=== PATIENT | female | born 1985 | race Caucasian/White ===

== ENCOUNTER → 2021-03-09 | Day surgery (SDC) | payer OTHER ==
[~2021-03-09] MED LIST: ADDERALL 15 MG15 MG PO; ARMODAFINIL200 MG PO; BUPROPION XL300 MG PO; CLARITIN10 MG PO; PERCOCET 5-3251 EACH PO
[2021-03-09 07:10] LABS: HCG (URINE) SCREEN NEGATIVE (NEGATIVE)
== END | disposition home or self-care (01) ==
LOC: FAS 06:30
PROVIDERS: Orthopaedic Surgery
DX: S43.431A Superior glenoid labrum lesion of right shoulder, initial encounter (principal); X58.XXXA Exposure to other specified factors, initial encounter; G47.419 Narcolepsy without cataplexy; Z20.822 Contact with and (suspected) exposure to COVID-19
CPT/HCPCS: 84703; 93005; J0171; J0690; J2250; J2370; J2405; J2704; J2710; J2795; J3010; J7120